=== PATIENT | female | born 1945 | race Caucasian/White ===

== ENCOUNTER → 2018-06-29 | Outpatient (CLI) | payer OTHER ==
[~2018-06-29] MED LIST: NITROGLYCERIN AEROSOL (4.9 GM)
[2018-06-29 12:20] LABS: ANION GAP 13 (8-16); BLOOD UREA NITROGEN 21 mg/dl (7-20); CALCIUM 9.6 mg/dl (8.4-10.2); CARBON DIOXIDE 28 mmol/L (21-31); CHLORIDE 106 mmol/L (97-110); GLUCOSE 101 mg/dl (70-220); POTASSIUM 4.6 mmol/L (3.5-5.1); SODIUM 142 mmol/L (135-144)
[2018-06-29] MEDS: SOD CHLORIDE 0.9% 100 ML (13:56)
[2018-06-29] MEDS: IOHEXOL 100 ML (13:56)
== END | disposition home or self-care (01) ==
LOC: C/S 11:34
DX: R06.02 Shortness of breath (principal)
CPT/HCPCS: 75574; 80048